=== PATIENT | male | born 1980 | race Two or more races ===

== ENCOUNTER 2024-09-16 10:12 | Emergency (ER) | payer OTHER ==
[~2024-09-16] VITALS: Ht 165.1 cm; Wt 92.5 kg
[2024-09-16] MEDS: KETOROLAC TROMETH 60MG/2ML VIAL IM ONE (10:15)
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
[2024-09-16] MEDS ORDERED: TRAM-626 PO (10:36)
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
[2024-09-16 11:20] VITALS: BP 141/85; PULSE 62; RESP 18; TEMP 98.2; O2SAT 96
== END 2024-09-16 11:53 | disposition home or self-care (01) ==
LOC: ER 10:12 → EDBD 10:12 → ER 11:53
DX: S22.080A Wedge compression fracture of T11-T12 vertebra, initial encounter for closed fracture (principal); S50.01XA Contusion of right elbow, initial encounter; V89.2XXA Person injured in unspecified motor-vehicle accident, traffic, initial encounter; Y93.89 Activity, other specified; Y92.410 Unspecified street and highway as the place of occurrence of the external cause; Y99.8 Other external cause status
CPT/HCPCS: 72100; 73070; 96372; 99284; J1885